=== PATIENT | male | born 1975 | race Caucasian/White ===

== ENCOUNTER 2018-06-09 18:55 | Emergency (ER) | payer MEDICAID ==
[~2018-06-09] VITALS: Ht 170.2 cm; Wt 76.2 kg
[2018-06-09 18:57] VITALS: BP 134/68
--- NOTE | 2018-06-09 19:05 | NUR ---
PT TO ED FOR PREBOOK REQ MEDICAL CLEARANCE DUE TO NO HIV MEDICATION X 1 YEAR. PT DENIES ANY COMPLAINTS OR CONCERNS AT THIS TIME.
[2018-06-09 19:36] VITALS: BP 134/68
--- NOTE | 2018-06-09 19:36 | NUR ---
Patient discharged with v/s stable. Written and verbal after care instructions given and explained. Patient verbalized understanding. Police with in custody. All questions addressed prior to discharge. Advised to follow up with PMD.
--- NOTE | 2018-06-09 19:36 | NUR ---
PATIENT BIB [place] [employer]. PATIENT EXAMINED BY DR. PHELPS. PATIENT MEDICALLY CLEARED AND RELEASED IN CUSTODY IN STABLE CONDITION. ORIGINAL PRE-BOOK FORM GIVEN TO OFFICER MICAH.
== END 2018-06-09 19:36 ==
LOC: MED 18:55
DX: Z02.89 Encounter for other administrative examinations (principal)
CPT/HCPCS: 99283

== ENCOUNTER 2019-01-01 14:32 | Inpatient (IN) | payer MEDICAID ==
[~2019-01-01] VITALS: Ht 177.8 cm; Wt 95.3 kg
[2019-01-01 14:36] VITALS: BP 112/66
[2019-01-01] MEDS ORDERED: SODIUM CHLORIDE FLUSH 10 ML SYR IVF STA (15:59)
[2019-01-01 16:34] LABS: BASOPHILS % (AUTO) 0.3 % (0.0-2.0); EOSINOPHILS % (AUTO) 0.1 % (0.0-4.0); HEMATOCRIT 45.8 % (36-52); HEMOGLOBIN 15.5 g/dL (12.0-18.0); LYMPHOCYTES # (AUTO) 1.1 K/uL (2.0-11.5); LYMPHOCYTES % (AUTO) 15.4 % (20.5-51.1); MEAN CORPUSCULAR HEMOGLOBIN 30 pg (27-31); MEAN CORPUSCULAR HGB CONC 34 g/dL (33-37); MEAN CORPUSCULAR VOLUME 87.3 fL (80-94); MONOCYTES # (AUTO) 0.8 K/uL (0.8-1.0); MONOCYTES % (AUTO) 11.6 % (1.7-9.3); NEUTROPHILS # (AUTO) 5.1 K/uL (1.8-7.7); NEUTROPHILS % (AUTO) 72.6 % (42.2-75.2); PLATELET COUNT (AUTO) 222 K/uL (140-450); RED BLOOD CELL COUNT(AUTO) 5.25 MIL/uL (4.20-6.10); RED CELL DISTRIBUTION WIDTH 14.2 % (11.6-13.7); WHITE BLOOD COUNT (AUTO) 7.1 K/uL (4.8-10.8)
[2019-01-01] MEDS ORDERED: NACL 0.9% 1,000 ML IV ONE ×2 (16:35→20:25)
[2019-01-01] MEDS ORDERED: MORPHINE SULFATE 4 MG/ML SYR IVP ONE (16:35)
[2019-01-01 16:48] LABS: ANION GAP 13.1 (8-16); CARBON DIOXIDE 27.4 mmol/L (21-32); CREATININE 1.1 mg/dL (0.7-1.3); POTASSIUM 3.5 mmol/L (3.5-5.1)
[2019-01-01 16:52] LABS: ALBUMIN 3.2 g/dL (3.4-5.0); TOTAL BILIRUBIN 0.6 mg/dL (0.0-1.0)
[2019-01-01] MEDS ORDERED: MAG SULF 2000 MG/WATER PREMIX 50 ML IV ONE (18:30)
[2019-01-01] MEDS ORDERED: metroNIDAZOLE 500 MG/NS PREMIX 100 ML IV ONE (20:25)
[2019-01-01] MEDS ORDERED: LEVOFLOXACIN 750 MG/D5W PREMIX 150 ML IV ONE (20:25)
[2019-01-01] MEDS ORDERED: ACETAMINOPHEN 325 MG TAB PO PRN (20:35)
[2019-01-01] MEDS ORDERED: ONDANSETRON 4 MG/2 ML VIAL IVP PRN ×2 (20:35→23:00)
[2019-01-01] MEDS ORDERED: DOCUSATE SODIUM 100 MG GELCAP PO SCH (21:00)
[2019-01-01 21:30] VITALS: BP 120/69
[2019-01-01 21:50] LABS: PROTHROMBIN TIME 11.5 secs (10.8-13.4)
[2019-01-01 21:56] LABS: FREE T4 (FREE THYROXINE) 1.05 ng/dL (0.76-1.46); PHOSPHORUS 3.8 mg/dL (2.5-4.9); THYROID STIMULATING HORMONE 1.55 uIU/mL (0.34-3.74)
[2019-01-01] MEDS ORDERED: LACTATED RINGERS 1,000 ML IV SCH ×2 (22:35→22:56)
[2019-01-01] MEDS ORDERED: ONDANSETRON 4 MG/2 ML VIAL ONE (22:45)
[2019-01-01] MEDS ORDERED: SUCCINYLCHOLINE CHLORIDE 200 MG/10 ML VIAL IVP ONE (22:45)
[2019-01-01] MEDS ORDERED: SEVOFLURANE 250 ML BTL INH ONE (22:45)
[2019-01-01] MEDS ORDERED: ROCURONIUM 50 MG/5 ML VIAL IV ONE (22:45)
[2019-01-01] MEDS ORDERED: KETOROLAC 30 MG/ML VIAL ONE (22:45)
[2019-01-01] MEDS ORDERED: DEXAMETHASONE 4 MG/ML VIAL ONE (22:45)
[2019-01-01] MEDS ORDERED: PROPOFOL 200 MG/20 ML VIAL IV ONE (22:45)
[2019-01-01] MEDS ORDERED: MIDAZOLAM 2 MG/2 ML VIAL ONE (22:53)
[2019-01-01] MEDS ORDERED: MEPERIDINE 50 MG/ML SYR ONE (22:54)
[2019-01-01] MEDS ORDERED: fentaNYL 0.05 MG/ML VIAL ONE (22:54)
[2019-01-01] MEDS ORDERED: BUPIVACAINE-MPF/EPI 0.5% 30 ML VIAL INJ ONE (22:56)
[2019-01-01] MEDS ORDERED: diphenhydrAMINE 50 MG/ML VIAL IVP PRN (23:00)
[2019-01-01] MEDS ORDERED: HYDROmorphone 1 MG/ML AMP IVP PRN (23:00)
[2019-01-01] MEDS ORDERED: MEPERIDINE 25 MG/ML SYR IVP PRN (23:00)
[2019-01-02 01:30] VITALS: BP 132/85
[2019-01-02] MEDS: MORPHINE SULFATE 4 MG/ML SYR IVP PRN (01:51)
[2019-01-02] MEDS: DEXT 5% / NACL 0.45% 1,000 ML IV SCH ×3 (01:51→21:30)
[2019-01-02 04:00] VITALS: BP 121/64
[2019-01-02 04:08] LABS: APPEARANCE,URINE CLEAR (CLEAR); BILIRUBIN,URINE NEGATIVE (NEGATIVE); BLOOD, URINE 2+ (NEGATIVE); COLOR,URINE YELLOW (YELLOW); LEUKOCYTE ESTERASE ,URINE NEGATIVE (NEGATIVE); NITRITE, URINE NEGATIVE (NEGATIVE); UGLUCOSE NEGATIVE (NEGATIVE)
[2019-01-02 05:27] LABS: RBC,URINE 0-5 /HPF (0-5); WBC,URINE 0-5 /HPF (0-5)
[2019-01-02 07:11] LABS: BASOPHILS % (AUTO) 0.1 % (0.0-2.0); EOSINOPHILS % (AUTO) 0.2 % (0.0-4.0); HEMATOCRIT 40.2 % (36-52); HEMOGLOBIN 13.6 g/dL (12.0-18.0); LYMPHOCYTES # (AUTO) 0.6 K/uL (2.0-11.5); LYMPHOCYTES % (AUTO) 9.7 % (20.5-51.1); MEAN CORPUSCULAR HEMOGLOBIN 30 pg (27-31); MEAN CORPUSCULAR HGB CONC 34 g/dL (33-37); MONOCYTES # (AUTO) 0.6 K/uL (0.8-1.0); MONOCYTES % (AUTO) 10.5 % (1.7-9.3); NEUTROPHILS # (AUTO) 4.8 K/uL (1.8-7.7); NEUTROPHILS % (AUTO) 79.5 % (42.2-75.2); PLATELET COUNT (AUTO) 198 K/uL (140-450); RED BLOOD CELL COUNT(AUTO) 4.62 MIL/uL (4.20-6.10); RED CELL DISTRIBUTION WIDTH 14.2 % (11.6-13.7); WHITE BLOOD COUNT (AUTO) 6.1 K/uL (4.8-10.8)
[2019-01-02 07:15] LABS: ANION GAP 14.2 (8-16); CARBON DIOXIDE 24.7 mmol/L (21-32); CREATININE 0.9 mg/dL (0.7-1.3); POTASSIUM 3.9 mmol/L (3.5-5.1)
[2019-01-02 07:19] LABS: MAGNESIUM 1.8 mg/dL (1.8-2.4)
[2019-01-02 07:38] LABS: CHOL/HDL RATIO 5.9 (1-4.5)
[2019-01-02 08:00] VITALS: BP 116/76
[2019-01-02] MEDS ORDERED: DARU1TAB PO (11:16)
[2019-01-02] MEDS ORDERED: LORazepam 2 MG/ML VIAL IVP PRN (11:35)
[2019-01-02 12:00] VITALS: BP 109/70
[2019-01-02] MEDS ORDERED: SYMTUZA PO SCH (12:00)
[2019-01-02 16:00] VITALS: BP 109/66
[2019-01-02 19:55] VITALS: BP 116/64
[2019-01-02] MEDS: LEVOFLOXACIN 750 MG/D5W PREMIX 150 ML IV SCH (21:46)
[2019-01-03 00:30] VITALS: BP 114/79
[2019-01-03] MEDS: DEXT 5% / NACL 0.45% 1,000 ML IV SCH ×2 (00:41→17:45)
[2019-01-03 03:50] VITALS: BP 113/73
[2019-01-03] MEDS: MORPHINE SULFATE 4 MG/ML SYR IVP PRN ×2 (03:56→22:57)
[2019-01-03 07:51] LABS: BASOPHILS % (AUTO) 0.1 % (0.0-2.0); EOSINOPHILS % (AUTO) 0.2 % (0.0-4.0); HEMATOCRIT 37.8 % (36-52); HEMOGLOBIN 12.5 g/dL (12.0-18.0); LYMPHOCYTES # (AUTO) 1.1 K/uL (2.0-11.5); LYMPHOCYTES % (AUTO) 19.2 % (20.5-51.1); MEAN CORPUSCULAR HEMOGLOBIN 29 pg (27-31); MEAN CORPUSCULAR HGB CONC 33 g/dL (33-37); MEAN CORPUSCULAR VOLUME 88.7 fL (80-94); MONOCYTES # (AUTO) 0.6 K/uL (0.8-1.0); MONOCYTES % (AUTO) 9.8 % (1.7-9.3); NEUTROPHILS # (AUTO) 4.1 K/uL (1.8-7.7); NEUTROPHILS % (AUTO) 70.7 % (42.2-75.2); PLATELET COUNT (AUTO) 232 K/uL (140-450); RED BLOOD CELL COUNT(AUTO) 4.26 MIL/uL (4.20-6.10); RED CELL DISTRIBUTION WIDTH 14.2 % (11.6-13.7); WHITE BLOOD COUNT (AUTO) 5.8 K/uL (4.8-10.8)
[2019-01-03 08:00] VITALS: BP 113/72
[2019-01-03 08:05] LABS: ANION GAP 10.1 (8-16); CARBON DIOXIDE 27.3 mmol/L (21-32); CREATININE 0.8 mg/dL (0.7-1.3); POTASSIUM 3.4 mmol/L (3.5-5.1)
[2019-01-03 08:10] LABS: MAGNESIUM 1.6 mg/dL (1.8-2.4)
[2019-01-03 08:28] LABS: PHOSPHORUS 1.9 mg/dL (2.5-4.9)
[2019-01-03] MEDS ORDERED: [UNRECOGNIZED DRUG - OTHER] PO SCH (09:00)
[2019-01-03] MEDS: SYMTUZA PO SCH (09:58)
[2019-01-03] MEDS: HYDROcodone/APAP 7.5/325 MG 1 TAB PO PRN (11:48)
[2019-01-03 12:00] VITALS: BP 122/79
[2019-01-03] MEDS: GAUZE TP SCH (13:24)
[2019-01-03 16:00] VITALS: BP 118/76
[2019-01-03 20:00] VITALS: BP 116/72
[2019-01-03] MEDS: LEVOFLOXACIN 750 MG/D5W PREMIX 150 ML IV SCH (22:41)
[2019-01-04] MEDS: DEXT 5% / NACL 0.45% 1,000 ML IV SCH ×3 (03:32→14:43)
[2019-01-04 08:00] VITALS: BP 110/71
[2019-01-04] MEDS: SYMTUZA PO SCH (09:34)
[2019-01-04] MEDS: GAUZE TP SCH (13:19)
[2019-01-04] MEDS: HYDROcodone/APAP 7.5/325 MG 1 TAB PO PRN (14:12)
[2019-01-04] MEDS ORDERED: MAGNESIUM OXIDE 400 MG TAB PO SCH (14:36)
[2019-01-04] MEDS ORDERED: POTASSIUM CHLORIDE 10 MEQ TABER PO SCH (14:37)
[2019-01-04] MEDS ORDERED: SODIUM PHOS / POTASSIUM PHOS 1 PKT PDR PO SCH (14:37)
[2019-01-04 16:00] VITALS: BP 124/76
[2019-01-04] MEDS: LEVOFLOXACIN 750 MG/D5W PREMIX 150 ML IV SCH (23:16)
[2019-01-04] MEDS: MORPHINE SULFATE 4 MG/ML SYR IVP PRN (23:25)
[2019-01-05] VITALS: BP 127/85
[2019-01-05 07:32] LABS: BASOPHILS % (AUTO) 0.3 % (0.0-2.0); EOSINOPHILS # (AUTO) 0.1 K/uL (0-0.4); HEMATOCRIT 41.8 % (36-52); HEMOGLOBIN 13.8 g/dL (12.0-18.0); LYMPHOCYTES # (AUTO) 1.8 K/uL (2.0-11.5); LYMPHOCYTES % (AUTO) 34.4 % (20.5-51.1); MEAN CORPUSCULAR HEMOGLOBIN 29 pg (27-31); MEAN CORPUSCULAR HGB CONC 33 g/dL (33-37); MEAN CORPUSCULAR VOLUME 87.9 fL (80-94); MONOCYTES # (AUTO) 0.7 K/uL (0.8-1.0); MONOCYTES % (AUTO) 14.1 % (1.7-9.3); NEUTROPHILS # (AUTO) 2.6 K/uL (1.8-7.7); NEUTROPHILS % (AUTO) 50.2 % (42.2-75.2); PLATELET COUNT (AUTO) 272 K/uL (140-450); RED BLOOD CELL COUNT(AUTO) 4.75 MIL/uL (4.20-6.10); RED CELL DISTRIBUTION WIDTH 13.8 % (11.6-13.7); WHITE BLOOD COUNT (AUTO) 5.2 K/uL (4.8-10.8)
[2019-01-05 07:43] LABS: ANION GAP 11.7 (8-16); CARBON DIOXIDE 27.6 mmol/L (21-32); CREATININE 0.7 mg/dL (0.7-1.3); POTASSIUM 3.3 mmol/L (3.5-5.1)
[2019-01-05 07:48] LABS: MAGNESIUM 1.4 mg/dL (1.8-2.4); PHOSPHORUS 4.2 mg/dL (2.5-4.9)
[2019-01-05 08:00] VITALS: BP 132/76
[2019-01-05] MEDS: DEXT 5% / NACL 0.45% 1,000 ML IV SCH ×2 (09:30→23:23)
[2019-01-05] MEDS: MORPHINE SULFATE 4 MG/ML SYR IVP PRN ×3 (09:51→23:29)
[2019-01-05] MEDS: SYMTUZA PO SCH (09:58)
[2019-01-05] MEDS: GAUZE TP SCH (13:32)
[2019-01-05 16:00] VITALS: BP 118/76
[2019-01-05] MEDS ORDERED: POTASSIUM CHLORIDE 40 MEQ, LIDOCAINE MPF 1% 25 MG in NACL 0.9% 250 ML IV ONE (22:35)
[2019-01-05] MEDS ORDERED: MAG SULF 2000 MG/WATER PREMIX 50 ML IV ONE (22:35)
[2019-01-05] MEDS: NACL 0.9% 1,000 ML IV SCH (23:30)
[2019-01-06] VITALS: BP 129/81
[2019-01-06] MEDS ORDERED: LIDOCAINE MPF 1% 0 ML ONE (02:02)
[2019-01-06] MEDS ORDERED: KCL 20 MEQ/WATER INJ PREMIX 100 ML IV SCH (02:15)
[2019-01-06 07:11] LABS: BASOPHILS % (AUTO) 0.2 % (0.0-2.0); EOSINOPHILS # (AUTO) 0.1 K/uL (0-0.4); HEMATOCRIT 41.7 % (36-52); HEMOGLOBIN 14.1 g/dL (12.0-18.0); LYMPHOCYTES # (AUTO) 1.7 K/uL (2.0-11.5); LYMPHOCYTES % (AUTO) 27.8 % (20.5-51.1); MEAN CORPUSCULAR HEMOGLOBIN 30 pg (27-31); MEAN CORPUSCULAR HGB CONC 34 g/dL (33-37); MEAN CORPUSCULAR VOLUME 87.5 fL (80-94); MONOCYTES # (AUTO) 0.7 K/uL (0.8-1.0); MONOCYTES % (AUTO) 12.1 % (1.7-9.3); NEUTROPHILS # (AUTO) 3.6 K/uL (1.8-7.7); NEUTROPHILS % (AUTO) 57.9 % (42.2-75.2); PLATELET COUNT (AUTO) 315 K/uL (140-450); RED BLOOD CELL COUNT(AUTO) 4.77 MIL/uL (4.20-6.10); RED CELL DISTRIBUTION WIDTH 13.8 % (11.6-13.7); WHITE BLOOD COUNT (AUTO) 6.2 K/uL (4.8-10.8)
[2019-01-06 08:00] VITALS: BP 117/78
[2019-01-06 08:22] LABS: ANION GAP 11.2 (8-16); CARBON DIOXIDE 26.4 mmol/L (21-32); CREATININE 0.7 mg/dL (0.7-1.3); POTASSIUM 3.6 mmol/L (3.5-5.1)
[2019-01-06 08:25] LABS: MAGNESIUM 1.9 mg/dL (1.8-2.4); PHOSPHORUS 3.3 mg/dL (2.5-4.9)
[2019-01-06] MEDS: SYMTUZA PO SCH (08:59)
[2019-01-06] MEDS: GAUZE TP SCH (13:51)
[2019-01-06 16:00] VITALS: BP 106/85
[2019-01-06] MEDS ORDERED: MAGNESIUM HYDROXIDE 2400 MG/30 ML UDC PO SCH (17:00)
[2019-01-06] MEDS: NACL 0.9% 1,000 ML IV SCH (19:30)
[2019-01-06] MEDS: DOCUSATE 100 MG/10 ML UDC GT SCH (21:48)
[2019-01-07] VITALS: BP 121/75
[2019-01-07 07:19] LABS: BASOPHILS % (AUTO) 0.3 % (0.0-2.0); EOSINOPHILS # (AUTO) 0.2 K/uL (0-0.4); HEMATOCRIT 41.3 % (36-52); HEMOGLOBIN 13.7 g/dL (12.0-18.0); LYMPHOCYTES % (AUTO) 33.1 % (20.5-51.1); MEAN CORPUSCULAR HEMOGLOBIN 29 pg (27-31); MEAN CORPUSCULAR HGB CONC 33 g/dL (33-37); MEAN CORPUSCULAR VOLUME 87.8 fL (80-94); MONOCYTES # (AUTO) 0.6 K/uL (0.8-1.0); MONOCYTES % (AUTO) 10.2 % (1.7-9.3); NEUTROPHILS # (AUTO) 3.2 K/uL (1.8-7.7); NEUTROPHILS % (AUTO) 52.4 % (42.2-75.2); PLATELET COUNT (AUTO) 354 K/uL (140-450); RED BLOOD CELL COUNT(AUTO) 4.71 MIL/uL (4.20-6.10); RED CELL DISTRIBUTION WIDTH 14.1 % (11.6-13.7); WHITE BLOOD COUNT (AUTO) 6.1 K/uL (4.8-10.8)
[2019-01-07 07:26] LABS: ANION GAP 9.6 (8-16); CARBON DIOXIDE 28.6 mmol/L (21-32); CREATININE 0.8 mg/dL (0.7-1.3); POTASSIUM 4.2 mmol/L (3.5-5.1)
[2019-01-07 08:00] VITALS: BP 129/81
[2019-01-07] MEDS ORDERED: DOCU-299 PO (08:29)
[2019-01-07] MEDS ORDERED: ACET-9529 PO (08:29)
[2019-01-07] MEDS: DOCUSATE 100 MG/10 ML UDC GT SCH ×2 (08:52→21:00)
[2019-01-07] MEDS: SYMTUZA PO SCH (08:52)
[2019-01-07] MEDS: GAUZE TP SCH (13:09)
[2019-01-07] MEDS: HYDROcodone/APAP 7.5/325 MG 1 TAB PO PRN ×2 (14:00→21:17)
[2019-01-07] MEDS: NACL 0.9% 1,000 ML IV SCH (15:52)
[2019-01-07 16:00] VITALS: BP 111/63
[2019-01-07 20:00] VITALS: BP 110/65
[2019-01-07] MEDS ORDERED: HYDROcodone/APAP 7.5/325 MG 1 TAB PO PRN (23:20)
[2019-01-08 08:00] VITALS: BP 115/73
[2019-01-08 08:53] LABS: BASOPHILS % (AUTO) 0.4 % (0.0-2.0); EOSINOPHILS # (AUTO) 0.2 K/uL (0-0.4); EOSINOPHILS % (AUTO) 5.1 % (0.0-4.0); HEMATOCRIT 41.1 % (36-52); HEMOGLOBIN 13.5 g/dL (12.0-18.0); LYMPHOCYTES # (AUTO) 1.8 K/uL (2.0-11.5); LYMPHOCYTES % (AUTO) 36.3 % (20.5-51.1); MEAN CORPUSCULAR HEMOGLOBIN 29 pg (27-31); MEAN CORPUSCULAR HGB CONC 33 g/dL (33-37); MEAN CORPUSCULAR VOLUME 88.6 fL (80-94); MONOCYTES # (AUTO) 0.4 K/uL (0.8-1.0); MONOCYTES % (AUTO) 9.1 % (1.7-9.3); NEUTROPHILS # (AUTO) 2.4 K/uL (1.8-7.7); NEUTROPHILS % (AUTO) 49.1 % (42.2-75.2); PLATELET COUNT (AUTO) 359 K/uL (140-450); RED BLOOD CELL COUNT(AUTO) 4.64 MIL/uL (4.20-6.10); WHITE BLOOD COUNT (AUTO) 4.9 K/uL (4.8-10.8)
[2019-01-08] MEDS ORDERED: DOCUSATE SODIUM 100 MG GELCAP PO SCH (09:00)
[2019-01-08] MEDS: SYMTUZA PO SCH (09:00)
[2019-01-08 09:13] LABS: ANION GAP 9.2 (8-16); CREATININE 0.8 mg/dL (0.7-1.3); POTASSIUM 4.2 mmol/L (3.5-5.1)
[2019-01-08] MEDS: NACL 0.9% 1,000 ML IV SCH (11:30)
[2019-01-08 16:00] VITALS: BP 109/74
[2019-01-08] MEDS: GAUZE TP SCH (17:05)
[2019-01-08] MEDS: DOCUSATE SODIUM 100 MG GELCAP PO SCH (21:44)
[2019-01-08] MEDS: HYDROcodone/APAP 10/325 MG 1 TAB TAB PO PRN (21:45)
[2019-01-09] VITALS: BP 113/65
[2019-01-09 08:00] VITALS: BP 100/48
[2019-01-09] MEDS: DOCUSATE SODIUM 100 MG GELCAP PO SCH ×2 (09:00→20:57)
[2019-01-09] MEDS: SYMTUZA PO SCH (09:00)
[2019-01-09] MEDS: HYDROcodone/APAP 10/325 MG 1 TAB TAB PO PRN ×2 (10:34→20:59)
[2019-01-09] MEDS ORDERED: MAGNESIUM HYDROXIDE 2400 MG/30 ML UDC PO SCH (13:00)
[2019-01-09] MEDS: GAUZE TP SCH (13:49)
[2019-01-09 16:00] VITALS: BP 108/66
[2019-01-09] MEDS: METOCLOPRAMIDE 10 MG TAB PO SCH (17:27)
[2019-01-10] VITALS: BP 105/54
[2019-01-10] MEDS: METOCLOPRAMIDE 10 MG TAB PO SCH ×2 (06:43→12:15)
[2019-01-10] MEDS ORDERED: MAGNESIUM CITRATE 300 ML BTL PO SCH (07:30)
[2019-01-10 08:00] VITALS: BP 112/67
[2019-01-10] MEDS: SYMTUZA PO SCH (09:00)
[2019-01-10] MEDS ORDERED: BISACODYL 10 MG SUPP RC SCH (09:15)
[2019-01-10] MEDS: HYDROcodone/APAP 10/325 MG 1 TAB TAB PO PRN ×2 (10:20→20:33)
[2019-01-10] MEDS: DOCUSATE SODIUM 100 MG GELCAP PO SCH ×2 (10:20→20:35)
[2019-01-10] MEDS: GAUZE TP SCH (13:14)
[2019-01-10 16:00] VITALS: BP 112/57
[2019-01-11] VITALS: BP 102/62
[2019-01-11 08:00] VITALS: BP 111/60
[2019-01-11] MEDS ORDERED: BISACODYL 10 MG SUPP RC SCH (09:30)
[2019-01-11] MEDS: DOCUSATE SODIUM 100 MG GELCAP PO SCH ×2 (09:59→20:34)
[2019-01-11] MEDS: SYMTUZA PO SCH (10:00)
[2019-01-11] MEDS: GAUZE TP SCH (13:18)
[2019-01-11] MEDS ORDERED: MAGNESIUM HYDROXIDE 2400 MG/30 ML UDC PO SCH (14:30)
[2019-01-11 16:00] VITALS: BP 113/67
[2019-01-12] VITALS: BP 116/72
[2019-01-12 08:00] VITALS: BP 104/68
[2019-01-12] MEDS: DOCUSATE SODIUM 100 MG GELCAP PO SCH ×2 (09:00→21:00)
[2019-01-12] MEDS: SYMTUZA PO SCH (09:14)
[2019-01-12] MEDS: GAUZE TP SCH (13:00)
[2019-01-12 16:04] VITALS: BP 119/69
[2019-01-13] VITALS: BP_SYST 107; BP_SYST 108; BP_DIAS 44; BP_DIAS 67
[2019-01-13 08:00] VITALS: BP 116/66
[2019-01-13] MEDS: DOCUSATE SODIUM 100 MG GELCAP PO SCH ×2 (09:00→20:20)
[2019-01-13] MEDS: SYMTUZA PO SCH (09:46)
[2019-01-13] MEDS: GAUZE TP SCH (12:23)
[2019-01-13] MEDS ORDERED: GAUZE TP SCH (13:00)
[2019-01-13] MEDS: HYDROcodone/APAP 10/325 MG 1 TAB TAB PO PRN (13:41)
[2019-01-13] MEDS ORDERED: HYDROcodone/APAP 5/325 MG 1 TAB TAB PO PRN (14:40)
[2019-01-13 16:00] VITALS: BP 127/78
== END 2019-01-13 22:25 | DRG 230 ==
LOC: MED 14:32 → MTU 20:35 → MIC 01-02 01:25 → MTU 01-02 07:00
PROVIDERS: ADMIT General Practice; ATTEND General Practice
PROC: 0D9670Z Drainage of Stomach with Drainage Device, Via Natural or Artificial Opening (ICD-10-PCS; principal; 2019-01-02)
PROC: 3E1M38Z Irrigation of Peritoneal Cavity using Irrigating Substance, Percutaneous Approach (ICD-10-PCS; 2019-01-02)
PROC: 0DBA0ZZ Excision of Jejunum, Open Approach (ICD-10-PCS; 2019-01-02)
DX: K56.1 Intussusception (principal); K65.9 Peritonitis, unspecified; E83.42 Hypomagnesemia; N28.1 Cyst of kidney, acquired; K56.609 Unspecified intestinal obstruction, unspecified as to partial versus complete obstruction; E87.6 Hypokalemia; J98.11 Atelectasis; F15.10 Other stimulant abuse, uncomplicated; Z21 Asymptomatic human immunodeficiency virus [HIV] infection status; K56.600 Partial intestinal obstruction, unspecified as to cause; Z88.0 Allergy status to penicillin; Z59.0 Homelessness
CPT/HCPCS: 36415; 74018; 80048; 80053; 81001; 82150; 83036; 83605; 83690; 83735; 83880; 84100; 84439; 84443; 84484; 85025; 85610; 85651; 85730; 86140; 86360; 86886; 86900; 86901; 87040; 87081; 88304; 93005; 96365; 96366; 96375; 97110; 97112; 97116; 97161-GP; 97530; 99285; J0330; J1100; J1885; J1956; J2001; J2175; J2250; J2270; J2405; J2704; J3010; J3475; J3480; J3490; J7030; J8597; Q9967

== ENCOUNTER 2019-04-12 08:03 | Inpatient (IN) | payer MEDICAID ==
[~2019-04-12] VITALS: Ht 177.8 cm; Wt 85.7 kg
[~2019-04-12 08:03] MED LIST: ACET-9529 PO; DARU1TAB PO; DOCU-299 PO
--- NOTE | 2019-04-12 08:03 | NUR ---
Pt bib BLS with [facility] and placed in bed 7.
[2019-04-12 08:06] VITALS: BP 161/92
--- NOTE | 2019-04-12 08:16 | NUR ---
PATIENT BIBA WITH C/O ABDOMINAL PAIN X5 DAYS, + N/V/D. HX OF SBO 12/2018, HIV. PT IS AAOX4 LUNGS CLEAR BL; HR EVEN AND REGULAR; PT DENIES ANY FEVER, CP, SOB, OR COUGH AT THIS TIME; PATIENT STATES PAIN OF 10/10 AT THIS TIME; VSS; PATIENT POSITIONED FOR COMFORT; HOB ELEVATED; BEDRAILS UP X2; BED DOWN. ER MD MADE AWARE OF PT STATUS.
--- NOTE | 2019-04-12 08:20 | NUR ---
Patient being evaluated by physician at bedside.
[2019-04-12] MEDS ORDERED: NACL 0.9% 1,000 ML IV ONE (08:22)
[2019-04-12] MEDS ORDERED: NACL 0.9% 2,000 ML IV SCH (08:22)
[2019-04-12] MEDS ORDERED: ONDANSETRON 4 MG/2 ML VIAL IVP ONE (08:25)
[2019-04-12] MEDS ORDERED: PROMETHAZINE 25 MG/ML VIAL IM ONE (08:25)
[2019-04-12] MEDS ORDERED: DICYCLOMINE HCL LIQUID 10 MG/5 ML UDC PO ONE (08:25)
[2019-04-12] MEDS ORDERED: MORPHINE SULFATE 4 MG/ML SYR IVP ONE (08:25)
[2019-04-12] MEDS ORDERED: KETOROLAC 30 MG/ML VIAL IVP ONE (08:25)
--- NOTE | 2019-04-12 08:37 | NUR ---
IV INSERTED TO RAC WITH GOOD BLOOD RETURN, IV BOLUS STARTED ORDERED. PATIENT TOLERATED WELL.
--- NOTE | 2019-04-12 09:00 | NUR ---
PATIENT OUT OF UNIT FOR CT SCAN WITH MATERIALS ASSISTANT.
[2019-04-12 09:01] LABS: BASOPHILS % (AUTO) 0.3 % (0.0-2.0); EOSINOPHILS # (AUTO) 0.3 K/uL (0-0.4); EOSINOPHILS % (AUTO) 2.8 % (0.0-4.0); HEMOGLOBIN 17.7 g/dL (12.0-18.0); LYMPHOCYTES # (AUTO) 2.8 K/uL (2.0-11.5); LYMPHOCYTES % (AUTO) 29.1 % (20.5-51.1); MEAN CORPUSCULAR HEMOGLOBIN 30 pg (27-31); MEAN CORPUSCULAR HGB CONC 33 g/dL (33-37); MEAN CORPUSCULAR VOLUME 89.7 fL (80-94); MONOCYTES # (AUTO) 0.5 K/uL (0.8-1.0); MONOCYTES % (AUTO) 5.1 % (1.7-9.3); NEUTROPHILS % (AUTO) 62.7 % (42.2-75.2); PLATELET COUNT (AUTO) 338 K/uL (140-450); RED BLOOD CELL COUNT(AUTO) 5.91 MIL/uL (4.20-6.10); RED CELL DISTRIBUTION WIDTH 13.9 % (11.6-13.7); WHITE BLOOD COUNT (AUTO) 9.5 K/uL (4.8-10.8)
[2019-04-12 09:03] LABS: CARBON DIOXIDE 25.2 mmol/L (21-32); POTASSIUM 3.2 mmol/L (3.5-5.1)
[2019-04-12 09:04] LABS: PROTHROMBIN TIME 9.6 secs (10.8-13.4)
[2019-04-12 09:16] LABS: ACETONE, SERUM NEGATIVE (NEGATIVE); AMYLASE 64 U/L (25-115); GAMMA GLUTAMYL TRANSFERASE 15 U/L (7-51); LIPASE 138 U/L (73-393); MAGNESIUM 1.9 mg/dL (1.8-2.4)
[2019-04-12 09:18] LABS: ALBUMIN 4.5 g/dL (3.4-5.0); TOTAL BILIRUBIN 0.3 mg/dL (0.0-1.0)
[2019-04-12 09:26] LABS: C-REACTIVE PROTEIN QUANT 1.5 mg/dL (0.0-0.9)
--- NOTE | 2019-04-12 09:30 | NUR ---
PATIENT IS BACK FROM CT, IV BOLUS CONTINUE.
[2019-04-12] MEDS ORDERED: KCL 20 MEQ/WATER INJ PREMIX 100 ML IV ONE (10:10)
--- NOTE | 2019-04-12 10:30 | NUR ---
PT IS ASLEEP IN BED, NO S/S OF DISTRESS, VSS, DENIES PAIN, WILL CONTINUE TO MONITOR.
--- NOTE | 2019-04-12 11:00 | NUR ---
PT STILL NOT ABLE TO GIVE URINE AT THIS TIME, ED MD AWARE.
[2019-04-12] MEDS: DEXT 5% / NACL 0.45% 1,000 ML IV SCH ×2 (11:18→19:38)
[2019-04-12] MEDS ORDERED: LORazepam 2 MG/ML VIAL IM/IVP PRN (11:20)
[2019-04-12] MEDS ORDERED: DOCUSATE SODIUM 100 MG GELCAP PO PRN (11:20)
[2019-04-12] MEDS ORDERED: HYDROcodone/APAP 7.5/325 MG 1 TAB PO PRN (11:20)
[2019-04-12] MEDS ORDERED: FAMOTIDINE 20 MG/2 ML VIAL IV PRN (11:20)
[2019-04-12] MEDS ORDERED: MORPHINE SULFATE 2 MG/ML SYR IVP PRN (11:20)
[2019-04-12] MEDS ORDERED: ACETAMINOPHEN 325 MG TAB PO PRN (11:20)
[2019-04-12] MEDS ORDERED: ONDANSETRON 4 MG/2 ML VIAL IM/IVP PRN (11:20)
--- NOTE | 2019-04-12 11:25 | NUR ---
Dr. De La O is evaluating the patient at bedside.
[2019-04-12 11:55] VITALS: BP 119/70
--- NOTE | 2019-04-12 11:55 | NUR ---
Patient admitted to care of DR. ANAYA TO TELEMETRY ROOM 119A VIA Coleman SANCHEZ list completed. Report to MARIA L ARIZMENDI AT BEDSIDE.
--- NOTE | 2019-04-12 11:55 | NUR ---
RECEIVED REPORT FROM ER NURSE, LUDMILA. PT IS STABLE, LAYING IN BED, RESPIRATIONS ARE EVEN AND UNLABORED. INTRODUCE TO ROOM AND GIVEN PHONE AND CALL LIGHT. INTRODUCE SELF TO PT, TOOK VITAL SIGNS. PT IS CURRENTLY ASLEEP
[2019-04-12] MEDS ORDERED: [UNRECOGNIZED DRUG - OTHER] PO SCH (12:00)
[2019-04-12] MEDS ORDERED: POTASSIUM CHLORIDE 10 MEQ TABER PO SCH (12:25)
[2019-04-12 12:33] LABS: ALBUMIN 4.4 g/dL (3.4-5.0); FREE T4 (FREE THYROXINE) 1.02 ng/dL (0.76-1.46); PHOSPHORUS 2.6 mg/dL (2.5-4.9); THYROID STIMULATING HORMONE 1.44 uIU/mL (0.34-3.74)
[2019-04-12] MEDS ORDERED: ALBUTEROL SULFATE/IPRATROPIU 3 ML SOL IH PRN (12:45)
[2019-04-12 12:51] LABS: CHOL/HDL RATIO 3.1 (1-4.5)
[2019-04-12] MEDS: ALBUTEROL SULFATE/IPRATROPIU 3 ML SOL IH SCH ×2 (13:22→19:15)
[2019-04-12] MEDS ORDERED: AZITHROMYCIN 500 MG in DEXTROSE 5% 250 ML IV SCH (13:30)
--- NOTE | 2019-04-12 15:10 | NUR ---
ADMINISTER ORDERED MEDICATION, AND HANG IV FLUIDS. PT IS TOLERATING WELL, PT STILL ASLEEP BUT WAKES UP WHEN HIS NAME IS CALLED, PT IS AOX4. CALL LIGHT WITHIN REACH.
[2019-04-12 16:00] VITALS: BP 111/61
[2019-04-12] MEDS ORDERED: SYMTUZA PO SCH (16:15)
--- NOTE | 2019-04-12 18:29 | NUR ---
PLACED A CALL TO PT SISTER SIVA TO LET HER KNOW PT IS IN THE HOSPITAL. THERE WAS NO ANSWER TO THE PHONE CALL. WILL ENDORSE TO NURSE TO FOLLOW UP.
--- NOTE | 2019-04-12 19:10 | NUR ---
RECEIVED REPORT FROM DAYSMIFT NURSE. TELE PATIENT. RESTING IN BED WITH EYES CLOSED. ALERT/ORIENTED X4, ABLE TO MAKE NEEDS KNOWN. SKIN WARM/DRY TO TOUCH. IV SITE INTACT/PATENT. PLAN OF CARE DISCUSSED, VERBALIZED UNDERSTANDING. CALL LIGHT AND URINAL WITHIN REACH. WILL CONTINUE TO [id number].
[2019-04-12 20:00] VITALS: BP 121/77
--- NOTE | 2019-04-12 20:30 | NUR ---
INSTRUCTED PT THE NEED FOR URINE ANS STOOL SPECIMEN . CONTAINER IN PLACED.
--- NOTE | 2019-04-12 22:30 | NUR ---
MADE ROUNDS. PT IS ASLEEP. NO S/S OF ANY DISCOMFORT NOTED. WILL CONTINUE TO MONITOR.
--- NOTE | 2019-04-12 23:30 | NUR ---
MAD ROUNDS. PT STILL SLEEPING WITH NO S/S OF ANY PAIN NOTED.
[2019-04-13] VITALS: BP 136/72
--- NOTE | 2019-04-13 01:30 | NUR ---
PT ASLEEP. NO S/S OF ANY PAIN NOTED.
--- NOTE | 2019-04-13 02:30 | NUR ---
PT REMINDED ABOUT THE NEED FOR URINE SPECIMEN. URINAL WITHIN REACH.
[2019-04-13] MEDS: DEXT 5% / NACL 0.45% 1,000 ML IV SCH ×3 (02:31→23:05)
--- NOTE | 2019-04-13 03:45 | NUR ---
URINE SPECIMEN FOR UA,UDS COLLECTED AND SEND TO LAB. WILL FOLLOW UP RESULT.
[2019-04-13 04:00] VITALS: BP 127/72
--- NOTE | 2019-04-13 05:00 | NUR ---
MADE ROUBDS. SLEEPING WELL. NO S/S OF ANY DISCOMFORT NOTED.
[2019-04-13 06:23] LABS: BASOPHILS % (AUTO) 0.4 % (0.0-2.0); EOSINOPHILS # (AUTO) 0.2 K/uL (0-0.4); EOSINOPHILS % (AUTO) 6.1 % (0.0-4.0); HEMATOCRIT 44.7 % (36-52); HEMOGLOBIN 14.8 g/dL (12.0-18.0); LYMPHOCYTES # (AUTO) 1.5 K/uL (2.0-11.5); LYMPHOCYTES % (AUTO) 38.2 % (20.5-51.1); MEAN CORPUSCULAR HEMOGLOBIN 29 pg (27-31); MEAN CORPUSCULAR HGB CONC 33 g/dL (33-37); MEAN CORPUSCULAR VOLUME 88.8 fL (80-94); MONOCYTES # (AUTO) 0.4 K/uL (0.8-1.0); MONOCYTES % (AUTO) 10.6 % (1.7-9.3); NEUTROPHILS # (AUTO) 1.8 K/uL (1.8-7.7); NEUTROPHILS % (AUTO) 44.7 % (42.2-75.2); PLATELET COUNT (AUTO) 262 K/uL (140-450); RED BLOOD CELL COUNT(AUTO) 5.03 MIL/uL (4.20-6.10); RED CELL DISTRIBUTION WIDTH 13.3 % (11.6-13.7)
[2019-04-13 06:48] LABS: MAGNESIUM 1.7 mg/dL (1.8-2.4)
[2019-04-13 06:54] LABS: ANION GAP 12.2 (8-16); CARBON DIOXIDE 21.2 mmol/L (21-32); CREATININE 0.7 mg/dL (0.7-1.3); POTASSIUM 3.4 mmol/L (3.5-5.1)
--- NOTE | 2019-04-13 07:12 | NUR ---
ENDORSED PATIENT TO AM SHIFT IN STABLE CONDITION. NO S/SX ACUTE DISTRESS.
--- NOTE | 2019-04-13 07:25 | NUR ---
RECEIVED REPORT FROM NIGHT RN. PATIENT IS CURRENTLY SLEEPING, EASILY AROUSABLE, VISIBLE CHEST RISE AND FALL. PATIENT IS ON CONTACT PRECAUTIONS TO R/O C.DIFF. IV TO RIGHT AC 20G. PATIENT HAS STOOL SAMPLE PENDING, NO BM SINCE ADMISSION. PATIENT IS NPO EXCEPT RX.
[2019-04-13] MEDS: ALBUTEROL SULFATE/IPRATROPIU 3 ML SOL IH SCH (07:28)
[2019-04-13 08:00] VITALS: BP 116/77
[2019-04-13] MEDS ORDERED: POTASSIUM CHLORIDE 10 MEQ TABER PO SCH (08:15)
[2019-04-13] MEDS ORDERED: MAG SULF 2000 MG/WATER PREMIX 50 ML IV ONE (08:15)
[2019-04-13] MEDS: MULTIVITAMIN/MINERALS 1 TAB PO SCH (08:27)
[2019-04-13] MEDS: SYMTUZA PO SCH (08:28)
[2019-04-13] MEDS: LACTOBACILLUS RHAMNOSUS GG 1 EACH CAP PO SCH (08:28)
--- NOTE | 2019-04-13 08:30 | NUR ---
ADMINISTERED MORNING MEDICATION. GAVE IVPB MAGNESIUM FOR LEVEL OF 1.7.
--- NOTE | 2019-04-13 09:28 | NUR ---
PATIENT HAS BEEN TRANSFERRED TO [facility], REMOVED TELE BOX AND LEADS.
--- NOTE | 2019-04-13 10:33 | NUR ---
PATIENT IS SLEEPING, EASILY AROUSABLE. NO COMPLAINTS AT THIS TIME.
--- NOTE | 2019-04-13 12:15 | NUR ---
PATIENT RESTING QUIETLY IN BED. PATIENT IS STILL NPO. NO COMPLAINTS AT THIS TIME.
[2019-04-13] MEDS: AZITHROMYCIN 250 MG in DEXTROSE 5% 250 ML IV SCH (13:00)
--- NOTE | 2019-04-13 14:11 | NUR ---
OBTAINED STOOL SAMPLE AND SENT COLLECTION TO LAB FOR EVALUATION.
--- NOTE | 2019-04-13 15:10 | NUR ---
ADMINISTERED IVPB ROCEPHIN. PATIENT IS SLEEPING, VISIBLE CHEST RISE AND FALL.
[2019-04-13 16:00] VITALS: BP 116/70
--- NOTE | 2019-04-13 18:17 | NUR ---
PATIENT RESTING QUIETLY IN BED. DR SANCHEZ CAME TO SEE PATIENT. PATIENT IS TO HAVE CXR AND CT SCAN CHEST. ALL NEEDS HAVE BEEN MET. WILL ENDORSE TO GOVERNMENT PROGRAM MANAGER FOR CONTINUITY OF CARE.
--- NOTE | 2019-04-13 19:30 | NUR ---
RECEIVED BEDSIDE REPORT FROM AM SHIFT RN MARY, FOR PT'S CONTINUITY OF CARE. PT IS LYING DOWN ASLEEP WITH NO SIGNS OF DISTRESS. PT IS ON ROOM AIR, HAS RIGHT AC 20G WITH D5 1/2NS AT 120ML/HR. SAFETY MEASURES IN PLACE. CALL LIGHT IS WITHIN REACH. WILL MONITOR PT THROUGHOUT SHIFT.
--- NOTE | 2019-04-13 21:00 | NUR ---
PT ASLEEP WITH NO SIGNS OF DISTRESS. WILL CONTINUE TO MONITOR PT.
[2019-04-14] VITALS: BP 101/57
--- NOTE | 2019-04-14 | NUR ---
VS CHECKED AND CHARTED. PT LYING DOWN ASLEEP, WOKE UP AND DENIES ANY PAIN. WENT BACK TO SLEEP RIGHT AFTER VS CHECK.
--- NOTE | 2019-04-14 02:30 | NUR ---
MADE ROUNDS. PT LYING DOWN ASLEEP WITH NO SIGNS OF DISTRESS. WILL CONTINUE TO MONITOR PT.
--- NOTE | 2019-04-14 03:30 | NUR ---
RECEIVED PT FROM OTHER [facility] SHIFT NURSE FOR CONTINUITY OF CARE.PT ASLEEP, BUT EASILY AROUSABLE, AMBULATORY, W/ IV ON THE R AC G 20 D51/2 NS AT 120 ML/HR. FOR OCCULT BLOOD STOOL; FOR UDS UA; FOR CT SCAN CHEST W/O CONTRAST.
[2019-04-14 04:00] VITALS: BP 104/54
[2019-04-14] MEDS: DEXT 5% / NACL 0.45% 1,000 ML IV SCH (04:58)
--- NOTE | 2019-04-14 05:11 | NUR ---
PT TAKEN TO THE CT-SCAN OF THE CHEST W/O CONTRAST VIA WHEELCHAIR
--- NOTE | 2019-04-14 06:45 | NUR ---
PT URINE SAMPLE TAKEN TO LAB FOR UDS AND UA, AWAITING RESULT
--- NOTE | 2019-04-14 06:52 | NUR ---
PT ASLEEP BUT AROUSABLE TO VERBAL STIMULI, NO RESPIRATORY DISTRESS AT THIS TIME;STILL NPO; WILL ENDORSE TO NEXT SHIFT.
--- NOTE | 2019-04-14 07:20 | NUR ---
RECEIVED BEDSIDE REPORT FROM MANAGER REQUIREMENTS NURSE, PT IS ASLEEP, NO S/S OF DISTRESS, NO SOB. PT IS ON ROOM AIR, SKIN INTACT. IV SITE R AC 20 G, INFUSING D5 1/2 NS 120 ML/HR. CONTACT ISOLATION IS IN PLACE. CALL LIGHT IS WITHIN REACH. WILL CONTINUE TO MONITOR. PT IS AWARE THAT WE NEED A STOOL AND URINE SAMPLE. SPECIMEN CONTAINERS ARE IN THE PT'S ROOM.
[2019-04-14 07:44] LABS: BASOPHILS % (AUTO) 0.5 % (0.0-2.0); EOSINOPHILS # (AUTO) 0.2 K/uL (0-0.4); EOSINOPHILS % (AUTO) 5.5 % (0.0-4.0); HEMATOCRIT 44.3 % (36-52); HEMOGLOBIN 14.9 g/dL (12.0-18.0); LYMPHOCYTES # (AUTO) 1.3 K/uL (2.0-11.5); LYMPHOCYTES % (AUTO) 35.6 % (20.5-51.1); MEAN CORPUSCULAR HEMOGLOBIN 30 pg (27-31); MEAN CORPUSCULAR HGB CONC 34 g/dL (33-37); MEAN CORPUSCULAR VOLUME 88.5 fL (80-94); MONOCYTES # (AUTO) 0.4 K/uL (0.8-1.0); MONOCYTES % (AUTO) 10.9 % (1.7-9.3); NEUTROPHILS # (AUTO) 1.8 K/uL (1.8-7.7); NEUTROPHILS % (AUTO) 47.5 % (42.2-75.2); PLATELET COUNT (AUTO) 285 K/uL (140-450); RED BLOOD CELL COUNT(AUTO) 5.01 MIL/uL (4.20-6.10); RED CELL DISTRIBUTION WIDTH 13.2 % (11.6-13.7); WHITE BLOOD COUNT (AUTO) 3.7 K/uL (4.8-10.8)
[2019-04-14 08:00] VITALS: BP 125/65
[2019-04-14] MEDS: SYMTUZA PO SCH (08:00)
[2019-04-14 08:39] LABS: MAGNESIUM 1.8 mg/dL (1.8-2.4); PHOSPHORUS 3.6 mg/dL (2.5-4.9)
[2019-04-14 08:42] LABS: ANION GAP 11.6 (8-16); CARBON DIOXIDE 24.7 mmol/L (21-32); CREATININE 0.9 mg/dL (0.7-1.3); POTASSIUM 3.3 mmol/L (3.5-5.1)
[2019-04-14] MEDS: MULTIVITAMIN/MINERALS 1 TAB PO SCH (09:00)
--- NOTE | 2019-04-14 09:11 | NUR ---
PATIENT HAS BEEN SCREENED AND CATEGORIZED HIGH NUTRITION RISK. PATIENT WILL BE SEEN WITHIN 1-2 DAYS OF ADMISSION. 04/14/[address]
[2019-04-14] MEDS ORDERED: MAGNESIUM OXIDE 400 MG TAB PO SCH (09:30)
[2019-04-14 09:59] LABS: APPEARANCE,URINE CLEAR (CLEAR); BILIRUBIN,URINE NEGATIVE (NEGATIVE); BLOOD, URINE NEGATIVE (NEGATIVE); COLOR,URINE YELLOW (YELLOW); LEUKOCYTE ESTERASE ,URINE NEGATIVE (NEGATIVE); NITRITE, URINE NEGATIVE (NEGATIVE); PH,URINE 5.5 (5.0-9.0); UGLUCOSE NEGATIVE (NEGATIVE)
[2019-04-14 10:09] LABS: BARBITURATE, URINE NEG. ng/ml (NEG <=200); BENZODIAZEPINE, URINE NEG. ng/mL (NEG <=200); CANNABINOID, URINE NEG. ng/mL (NEG <=50); COCAINE, URINE NEG. ng/mL (NEG <=300); OPIATE, URINE NEG. ng/mL (NEG <=2000); PHENCYCLIDINE SCREEN,URINE NEG. ng/mL (NEG <=25)
--- NOTE | 2019-04-14 10:18 | NUR ---
DC PLANNING 44 YRS OLD MALE PATIENT CAME FROM HOME WITH A DX OF RECURRENT ABDOMINAL PAIN. PT HAS A HX OF HIV , EXP LAP WITH RESECTION AND PRIMARY ANASTOMOSIS OF SMALL BOWEL. LACTIC ACID 2.5 ADMINISTERED IVF 3L BOLUS , CXR SHOWED LEFT BASILAR ATELECTASIS ROCEPHIN IV GIVEN ,STARTED ON RT PROTOCOL. PULMO AND GI CONSULT . DC PLAN TO GO HOME WHEN STABLE CM TO FOLLOW.
[2019-04-14] MEDS: LACTOBACILLUS RHAMNOSUS GG 1 EACH CAP PO SCH (10:24)
[2019-04-14] MEDS: NACL 0.9% 1,000 ML IV SCH ×2 (10:25→22:50)
--- NOTE | 2019-04-14 10:30 | NUR ---
AM MEDS ADMINISTERED, PT TOLERATED WELL.
--- NOTE | 2019-04-14 10:37 | NUR ---
URINE SAMPLE COLLECTED, TAKEN TO LAB.
[2019-04-14] MEDS ORDERED: POTASSIUM CHLORIDE 40 MEQ, LIDOCAINE MPF 1% 25 MG in NACL 0.9% 250 ML IV SCH (11:00)
--- NOTE | 2019-04-14 11:28 | NUR ---
K-RIDER INFUSING ORDERED.
[2019-04-14] MEDS: AZITHROMYCIN 250 MG in DEXTROSE 5% 250 ML IV SCH (12:43)
--- NOTE | 2019-04-14 13:34 | NUR ---
PT HAD A LOOSE BM. SAMPLE COLLECTED AND TAKEN TO LAB FOR C.DIFF TESTING. ALSO COLLECTED SAMPLE FOR HEMOCCULT TEST AND TAKEN TO LAB.
--- NOTE | 2019-04-14 15:28 | NUR ---
04/14/19 RD INITIAL ASSESSMENT COMPLETED PLEASE REFER TO NUTRITION ASSESSMENT UNDER CARE ACTIVITY FOR ESTIMATED NUTRITIONAL NEEDS. 1. CONTINUE CCHO 60GM AND CARDIAC DIET TOLERATED 2. RD PROVIDED NUTRITION EDUCATION FOR DIARRHEA 3. RD TO FOLLOW-UP 5-7 DAYS, LOW RISK MARINE MALDONADO, RD
[2019-04-14 16:00] VITALS: BP 120/72
--- NOTE | 2019-04-14 18:01 | NUR ---
PT IS SLEEPING COMFORTABLY. NO S/S OF DISTRESS.
--- NOTE | 2019-04-14 19:30 | NUR ---
RECEIVED BEDSIDE REPORT FROM AM SHIFT RN FOR PT'S CONTINUITY OF CARE. PT IS LYING DOWN ASLEEP WITH NO SIGNS OF DISTRESS. PT IS ON ROOM AIR, HAS RIGHT AC 20G WITH NS AT 80ML/HR. SAFETY MEASURES IN PLACE, AND CALL LIGHT IS WITHIN REACH. WILL MONITOR PT THROUGHOUT SHIFT.
--- NOTE | 2019-04-14 19:30 | NUR ---
ENDORSED PT TO MEDICAL TRANSCRIBER NURSE IN STABLE CONDITION.
--- NOTE | 2019-04-14 21:42 | NUR ---
RECEIVED PATIENT ON ROOM AIR, PULSE OX SAT 99%. PATIENT DENIES SOB. PRN HHN NOT INDICATED AT THIS TIME. NO ACUTE RESPIRATORY DISTRESS NOTED. WILL CONTINUE TO MONITOR.
--- NOTE | 2019-04-14 22:00 | NUR ---
PT LYING DOWN COMFORTABLY WITH NO SIGNS OF DISTRESS. WILL CONTINUE TO MONITOR PT.
[2019-04-15] VITALS: BP 107/71
--- NOTE | 2019-04-15 | NUR ---
VS CHECKED AND CHARTED. PT DENIES ANY PAIN, PT'S NEEDS MET AT THIS TIME. WILL CONTINUE TO MONITOR PT.
--- NOTE | 2019-04-15 02:01 | NUR ---
PT LYING DOWN ASLEEP WITH NO SIGNS OF DISTRESS. WILL CONTINUE TO MONITOR PT.
--- NOTE | 2019-04-15 04:21 | NUR ---
PT CONTINUES TO BE ASLEEP WITH NO SIGNS OF DISTRESS. WILL CONTINUE TO MONITOR PT.
--- NOTE | 2019-04-15 06:07 | NUR ---
PT'S IV BEEPING, REMINDED PT TO KEEP ARM STRAIGHT. PT FOLLOWED COMMAND, DENIES ANY PAIN AT THIS TIME. WILL ENDORSE TO AM SHIFT RN FOR PT'S CONTINUITY OF CARE.
[2019-04-15 07:18] LABS: ANION GAP 15.2 (8-16); CARBON DIOXIDE 24.4 mmol/L (21-32); CREATININE 0.9 mg/dL (0.7-1.3); POTASSIUM 3.6 mmol/L (3.5-5.1)
[2019-04-15 07:20] LABS: BASOPHILS % (AUTO) 0.6 % (0.0-2.0); EOSINOPHILS # (AUTO) 0.2 K/uL (0-0.4); EOSINOPHILS % (AUTO) 4.1 % (0.0-4.0); HEMATOCRIT 45.3 % (36-52); HEMOGLOBIN 15.3 g/dL (12.0-18.0); LYMPHOCYTES # (AUTO) 1.9 K/uL (2.0-11.5); LYMPHOCYTES % (AUTO) 42.7 % (20.5-51.1); MEAN CORPUSCULAR HEMOGLOBIN 30 pg (27-31); MEAN CORPUSCULAR HGB CONC 34 g/dL (33-37); MEAN CORPUSCULAR VOLUME 87.4 fL (80-94); MONOCYTES # (AUTO) 0.4 K/uL (0.8-1.0); MONOCYTES % (AUTO) 9.8 % (1.7-9.3); NEUTROPHILS # (AUTO) 1.9 K/uL (1.8-7.7); NEUTROPHILS % (AUTO) 42.8 % (42.2-75.2); PLATELET COUNT (AUTO) 290 K/uL (140-450); RED BLOOD CELL COUNT(AUTO) 5.18 MIL/uL (4.20-6.10); RED CELL DISTRIBUTION WIDTH 13.2 % (11.6-13.7); WHITE BLOOD COUNT (AUTO) 4.4 K/uL (4.8-10.8)
--- NOTE | 2019-04-15 07:25 | NUR ---
PT ASLEEP IN BED UPON ARRIVAL. RESPONSIVE TO VERBAL AND TACTILE STIMULI. ABLE TO MAKE NEEDS KNOWN. RESPIRATIONS EVEN AND UNLABORED WITH NO SOB OR RESPIRATORY DISTRESS. IV SITE RIGHT FA 20G CLEAN, DRY, AND INTACT. SKIN WARM AND DRY TO TOUCH. SAFETY MEASURES IN PLACE. WILL CONTINUE TO MONITOR.
[2019-04-15 07:26] LABS: MAGNESIUM 1.6 mg/dL (1.8-2.4); PHOSPHORUS 3.8 mg/dL (2.5-4.9)
[2019-04-15 08:00] VITALS: BP 103/64
[2019-04-15] MEDS: SYMTUZA PO SCH (09:08)
[2019-04-15] MEDS: MULTIVITAMIN/MINERALS 1 TAB PO SCH (09:08)
[2019-04-15] MEDS: LACTOBACILLUS RHAMNOSUS GG 1 EACH CAP PO SCH (09:08)
--- NOTE | 2019-04-15 09:08 | NUR ---
ADMINISTERED SCHEDULED MEDS PRESCRIBED PER MD ORDER. PT TOLERATED WELL. MEDICATION EDUCATION PERFORMED. PT UNDERSTANDS AND VERBALIZED UNDERSTANDING. SAFETY MEASURES IN PLACE. WILL CONTINUE TO MONITOR
--- NOTE | 2019-04-15 10:15 | NUR ---
HOURLY ROUNDING. PT ASLEEP IN BED. RESPONSIVE TO VERBAL AND TACTILE STIMULI. ABLE TO MAKE NEEDS KNOWN. RESPIRATIONS EVEN AND UNLABORED WITH NO SOB OR RESPIRATORY DISTRESS. SAFETY MEASURES IN PLACE. WILL CONTINUE TO MONITOR.
[2019-04-15] MEDS ORDERED: MAGNESIUM OXIDE 400 MG TAB PO SCH (10:18)
[2019-04-15] MEDS ORDERED: AZIT250T3 PO (10:46)
[2019-04-15] MEDS ORDERED: SULF-58 PO (10:46)
[2019-04-15] MEDS ORDERED: LACT10CA PO (10:46)
[2019-04-15] MEDS: NACL 0.9% 1,000 ML IV SCH (11:32)
--- NOTE | 2019-04-15 11:32 | NUR ---
ADMINISTERED SCHEDULED MED PRESCRIBED PER MD ORDER. PT TOLERATED WELL. MEDICATION EDUCATION PERFORMED. PT VERBALIZED UNDERSTANDING. NO COMPLICATIONS OR CONCERNS. PT IS AWARE OF DISCHARGE AND REQUESTED TO LEAVE AFTER LUNCH. SAFETY MEASURES IN PLACE. WILL CONTINUE TO MONITOR.
--- NOTE | 2019-04-15 12:00 | NUR ---
PT LYING IN BED UPON ARRIVAL. ABLE TO MAKE NEEDS KNOWN. SKIN WARM AND DRY TO TOUCH. RESPIRATIONS EVEN AND UNLABORED WITH NO SOB OR RESPIRATORY DISTRESS. WENT OVER DISCHARGE INSTRUCTIONS WITH PT. PT SIGNED APPROPRIATE FORMS. NO COMPLICATIONS OR CONCERNS AT THIS TIME. INFORMED PATIENT TO VISIT ED FOR ANY SIGNS OF DISTRESS. INTACT IV CANNULA AND ID BANDS REMOVED. BUS PASS GIVEN TO PATIENT WELL TAKE HOME MEAL. PT GATHERED ALL OF HIS BELONGING. PNA AND FLU VACCINE REFUSED. PT CHANGED INTO OWN CLOTHES AND WAS WHEELED OUT SAFELY. PT IS STABLE.
[2019-04-15 12:11] VITALS: BP 103/64
[2019-04-15] MEDS: AZITHROMYCIN 250 MG in DEXTROSE 5% 250 ML IV SCH (13:32)
== END 2019-04-15 15:40 | disposition home or self-care (01) | DRG 720 ==
LOC: MED 08:03 → MTU 11:29
PROVIDERS: ADMIT General Practice; ATTEND General Practice
DX: A41.9 Sepsis, unspecified organism (principal); J18.9 Pneumonia, unspecified organism; E86.0 Dehydration; Z21 Asymptomatic human immunodeficiency virus [HIV] infection status; Z90.49 Acquired absence of other specified parts of digestive tract; A08.4 Viral intestinal infection, unspecified; K52.9 Noninfective gastroenteritis and colitis, unspecified; E87.6 Hypokalemia; E83.42 Hypomagnesemia; J98.11 Atelectasis; Z88.0 Allergy status to penicillin
CPT/HCPCS: 36415; 71045; 71250; 80048; 80053; 80305; 81003; 82009; 82040; 82140; 82150; 82272; 82977; 83036; 83605; 83615; 83690; 83735; 83880; 84100; 84439; 84443; 84484; 85025; 85610; 85730; 86140; 87015; 87045; 87070; 87081; 93005; 94640; 96361; 96374; 96375; 99285; G0482; J0456; J0696; J1885; J2001; J2270; J2405; J2550; J3475; J3480; J7030; J7060; J7620; Q0092

== ENCOUNTER 2021-11-23 21:02 | Emergency (ER) | payer MEDICAID ==
[~2021-11-23] VITALS: Ht 177.8 cm; Wt 96.2 kg
[~2021-11-23 21:02] MED LIST changes: -ACET-9529 PO; +AZIT250T3 PO; -DOCU-299 PO; +LACT10CA PO; +SULF-58 PO
[2021-11-23 21:30] VITALS: BP 133/80
--- NOTE | 2021-11-23 21:36 | NUR ---
TO LOBBY FOLLOWING TRIAGE
--- NOTE | 2021-11-23 23:48 | NUR ---
PT AMBULATED TO BED #4
--- NOTE | 2021-11-24 00:02 | NUR ---
46 Y/O MALE BIBS, C/O ABCESS X2 WKS. PT STATES THAT HE HAS HAD TH EABCESS FOR 2 WKS BUT ONLY IN THE LAST 2 DAYS HAS IT GOTTEN WORSE. PT HAS 3 TO HIS BACK, X1 TO LEFT BUTTOCK, AND X1 TO HIS ABDOMEN. PT IS COMPLAINING OF FEVER, N/V/D, AND PAIN. DENIES CP OR SOB. A/OX4, AMBULATORY, UNLABORED BREATHING. HX: HIV, ABD HERNIA ALL: PCN DENIES MEDS.
--- NOTE | 2021-11-24 00:14 | NUR ---
DR. WOO AT BEDSIDE FOR MSE
[2021-11-24] MEDS ORDERED: KETOROLAC 60 MG/2 ML VIAL IM ONE (00:20)
[2021-11-24] MEDS ORDERED: SULF-59 PO (00:38)
[2021-11-24] MEDS ORDERED: IBUP-2213 PO (00:38)
[2021-11-24 00:52] VITALS: BP 130/76
--- NOTE | 2021-11-24 00:53 | NUR ---
Patient discharged with v/s stable. Written and verbal after care instructions given and explained. Patient alert, oriented and verbalized understanding of instructions. Ambulatory with steady gait. All questions addressed prior to discharge. ID band removed. Patient advised to follow up with PMD. Rx of IBUPROFEN AND BACTRIM given. Patient educated on indication of medication including possible reaction and side effects. Opportunity to ask questions provided and answered. VSS, A/OX4, UNLABORED BREATHING, AMBULATORY, AND CALM DEMEANOR.
== END 2021-11-24 00:53 | disposition home or self-care (01) ==
LOC: MED 21:02
DX: L02.212 Cutaneous abscess of back [any part, except buttock and flank] (principal); Z88.0 Allergy status to penicillin; Z79.899 Other long term (current) drug therapy; Z98.890 Other specified postprocedural states
CPT/HCPCS: 96372; 99283; J1885